=== PATIENT | male | born 1980 | race Caucasian/White ===

== ENCOUNTER 2020-01-20 07:38 | Emergency (ER) | payer OTHER ==
[~2020-01-20] VITALS: Ht 175.3 cm; Wt 86.2 kg
[2020-01-20 07:51] VITALS: BP_SYST 120
--- NOTE | 2020-01-20 07:55 | NUR ---
Patient to ER bed 06 to gown for evaluation. Side rails up.
--- NOTE | 2020-01-20 08:00 | NUR ---
PT CAME TO ER FOR GENERALIZED BURNING PAIN 07/03. RESTING IN [facility] AWAITING
--- NOTE | 2020-01-20 08:05 | NUR ---
ER at bedside examining patient.
[2020-01-20] MEDS ORDERED: NACL 0.9% 1,000 ML IV ONE (08:30)
[2020-01-20] MEDS ORDERED: MORPHINE 2 MG/ML INJ. SYRINGE IVP ONE (08:30)
[2020-01-20] MEDS ORDERED: ONDANSETRON HCL 4 MG/2 ML VIAL IVP ONE (08:30)
[2020-01-20] MEDS ORDERED: PANTOPRAZOLE SODIUM 40 MG/VIAL (PROTONIX) IVP ONE (08:45)
[2020-01-20 10:02] VITALS: BP_SYST 118
--- NOTE | 2020-01-20 10:06 | NUR ---
Patient given written and verbal discharge instructions and verbalizes understanding. ER MD discussed with patient the results and treatment provided. Patient in stable condition. ID arm band removed. No Rx given. Patient educated on pain management and to follow up with PMD. Pain Scale 2/10 tolerable for patient . Opportunity for questions provided and answered. Medication side effect fact sheet provided.
== END 2020-01-20 10:02 | disposition home or self-care (01) ==
LOC: SED 07:38
DX: G43.909 Migraine, unspecified, not intractable, without status migrainosus (principal)
CPT/HCPCS: 96361; 96374; 96375; 99284; C9113; J2270; J2405; J7030

== ENCOUNTER 2020-02-08 19:23 | Emergency (ER) | payer OTHER ==
[~2020-02-08] VITALS: Ht 175.3 cm; Wt 86.2 kg
[2020-02-08 19:30] VITALS: BP_SYST 149
--- NOTE | 2020-02-08 19:43 | NUR ---
Patient to ER bed 5 to gown for evaluation. Side rails up. Report given to CASTRO LOVELL.
--- NOTE | 2020-02-08 19:45 | NUR ---
Pt brought in by self. Pt awake, alert, oriented x4. Pt states that he has had Nausea/Vomiting, diarrhea, headache, general body aches and sensitivity to light for the past approx 48-36 hours intermittently. Pt states that he has history of migraine headaches, and he has tried his rx of excedrine, and sumatraptin (imotrex) with no relief. Pt states that he nornally takes toradol IM and it resolves. Pt denies cough, shortness of breath, chest pain, dizziness, blurred vision at this time. Pt resting in ed bed comfortably, no acute distress.
--- NOTE | 2020-02-08 20:10 | NUR ---
ER at bedside examining patient.
[2020-02-08] MEDS ORDERED: NACL 0.9% 1,000 ML IV ONE (20:45)
[2020-02-08] MEDS ORDERED: ONDANSETRON HCL 4 MG/2 ML VIAL IVP ONE (20:45)
[2020-02-08] MEDS ORDERED: SUMAtriptan SUCCINATE 6 MG/0.5 ML VIAL SUBCUT ONE (20:45)
[2020-02-08] MEDS ORDERED: KETOROLAC TROMETHAMINE 30 MG VIAL IVP ONE (21:00)
--- NOTE | 2020-02-08 21:20 | NUR ---
pt resting in ed bed, tolerating iv fluids well
[2020-02-08 22:10] VITALS: BP_SYST 144
--- NOTE | 2020-02-08 22:10 | NUR ---
Patient given written and verbal discharge instructions and verbalizes understanding. ER MD discussed with patient the results and treatment provided. Patient in stable condition. ID arm band removed. IV catheter removed intact and dressing applied, no active bleeding. No RX given. Patient educated on pain management and to follow up with PMD. Pain Scale 0/10. Opportunity for questions provided and answered.
== END 2020-02-08 22:10 | disposition home or self-care (01) ==
LOC: SED 19:23
DX: G43.909 Migraine, unspecified, not intractable, without status migrainosus (principal); Z88.8 Allergy status to other drugs, medicaments and biological substances
CPT/HCPCS: 96374; 96375; 99284; J1885; J2405; J7030

== ENCOUNTER 2020-02-18 08:14 | Emergency (ER) | payer OTHER ==
[~2020-02-18] VITALS: Ht 175.3 cm; Wt 86.2 kg
[2020-02-18 08:26] VITALS: BP_SYST 142
[2020-02-18] MEDS ORDERED: PROMETHAZINE INJ.Non-Formulary 25 MG/ML AMP IM ONE (08:45)
[2020-02-18] MEDS ORDERED: KETOROLAC TROMETHAMINE 60 MG/2 ML VIAL IM ONE (08:45)
[2020-02-18] MEDS ORDERED: DIPHENHYDRAMINE HCL 25 MG CAPSULE PO ONE (09:00)
[2020-02-18] MEDS ORDERED: DIPHENHYDRAMINE HCL 25 MG CAPSULE ONE (09:07)
== END 2020-02-18 08:59 | disposition home or self-care (01) ==
LOC: SED 08:14
DX: G43.109 Migraine with aura, not intractable, without status migrainosus (principal); R03.0 Elevated blood-pressure reading, without diagnosis of hypertension; Z85.038 Personal history of other malignant neoplasm of large intestine; Z88.8 Allergy status to other drugs, medicaments and biological substances
CPT/HCPCS: 96372; 99283; J1885; J2550; Q0163